=== PATIENT | female | born 1960 | race Caucasian/White ===

== ENCOUNTER 2025-03-12 03:33 | Inpatient (IN) | payer MEDICARE, OTHER ==
[~2025-03-12] VITALS: Ht 160 cm; Wt 83.5 kg
[2025-03-12] MEDS ORDERED: PRAV10TA43 PO (03:51)
[2025-03-12] MEDS ORDERED: HYOS0.1297 PO (03:51)
[2025-03-12 04:49] LABS: BASO # 0.0 10^3/uL (0.0-0.2); BASO % 0.3 % (0.0-1.0); EOS # 0.0 10^3/uL (0.0-0.5); EOS % 0.2 % (0.0-3.0); LYMPH # 1.0 10^3/uL (1.5-5.0); LYMPH % 7.7 % (24.0-44.0); MONO # 0.6 10^3/uL (0.0-0.8); MONO % 4.7 % (2.0-8.0); NEUTROPHILS # 11.2 10^3/uL (1.5-8.5); NEUTROPHILS % 86.9 % (36.0-66.0); PLATELET COUNT, AUTOMATED 359 10^3/uL (150-450)
[2025-03-12 05:03] LABS: ALT/SGPT 21.0 U/L (7.0-40); AST/SGOT 23.0 U/L (<34); CALCIUM LEVEL 10.3 MG/DL (8.3-10.6); CARBON DIOXIDE LEVEL 22.0 MMOL/L (20-31); CHLORIDE LEVEL 105.0 MMOL/L (98-107); CREATININE FOR GFR 0.92 MG/DL (0.55-1.30); GLOMERULAR FILTRATION RATE 69.1 (>45); POTASSIUM SERUM 3.7 MMOL/L (3.5-5.1); SODIUM LEVEL 142.0 MMOL/L (136-145)
[2025-03-12] MEDS: ONDANSETRON 4MG 2ML VIAL IV ONE (05:33)
[2025-03-12] MEDS: FAMOTIDINE 20 MG/2 ML VIAL IVP ONE (05:33)
[2025-03-12] MEDS: LR 1,000 ML IV ONE ×2 (05:33→06:46)
[2025-03-12] MEDS: MORPHINE 4 MG/ML 1 ML VIAL IV ONE (06:10)
[2025-03-12] MEDS: GASTROGRAFIN SOLUTION 30ML PO SCH (06:46)
[2025-03-12] MEDS ORDERED: ISOVUE-370 76% 100 ML VIAL As Ordered ONE (08:01)
[2025-03-12] MEDS ORDERED: LEVS0.123 PO (09:24)
[2025-03-12] MEDS ORDERED: PRAV40TA85 PO (09:24)
[2025-03-12] MEDS ORDERED: HOME MED LIST COMPLETE! XX SCH (09:25)
[2025-03-12 10:08] LABS: KETONE, URINE AUTO RFX NEGATIVE (NEGATIVE); LEUKOCYTE ESTERASE UR AUTO RFX NEGATIVE (NEGATIVE); NITRITE, URINE AUTO RFX NEGATIVE (NEGATIVE); RBC, URINE AUTO RFX 0 /HPF (0-3); SQUAM EPITHELIAL CELL UR AURFX 2 /HPF (0-6); WBC, URINE AUTO RFX 0 /HPF (0-3)
[2025-03-12] MEDS: NS (Normal Saline) 0.9% 1,000 ML IV ONE (11:04)
[2025-03-12] MEDS: SUCRALFATE 1 GM TAB PO SCH (12:00)
[2025-03-12] MEDS ORDERED: MORPHINE 2 MG/ML 1 ML VIAL IV PRN (13:00)
[2025-03-12] MEDS: PANTOPRAZOLE 40MG VIAL IV ONE (14:05)
[2025-03-12] MEDS: NS (Normal Saline) 0.9% 1,000 ML IV SCH (14:06)
[2025-03-12] MEDS: ONDANSETRON 4MG 2ML VIAL IV PRN (18:41)
[2025-03-12 20:00] VITALS: BP 144/82; TEMP 97.2; O2SAT 98
[2025-03-12] MEDS: PRAVASTATIN 20 MG TAB PO SCH (20:22)
[2025-03-12] MEDS: PANTOPRAZOLE 40MG VIAL IV SCH (20:22)
[2025-03-12] MEDS: ENOXAPARIN 40 MG/0.4 ML SYRINGE (J1650 PER 10MG) SC SCH (20:23)
[2025-03-13 04:00] VITALS: BP 139/69; TEMP 97.3; O2SAT 95
[2025-03-13 06:57] LABS: PLATELET COUNT, AUTOMATED 246 10^3/uL (150-450)
[2025-03-13 07:20] LABS: CALCIUM LEVEL 8.5 MG/DL (8.3-10.6); CARBON DIOXIDE LEVEL 25.0 MMOL/L (20-31); CHLORIDE LEVEL 113.0 MMOL/L (98-107); CREATININE FOR GFR 0.91 MG/DL (0.55-1.30); GLOMERULAR FILTRATION RATE 70.0 (>45); POTASSIUM SERUM 4.0 MMOL/L (3.5-5.1); SODIUM LEVEL 146.0 MMOL/L (136-145)
[2025-03-13 10:05] LABS: ESTIMATED AVERAGE GLUCOSE 117.0 MG/DL (60-110)
[2025-03-13 14:00] VITALS: BP 137/70; TEMP 96.8
[2025-03-13] MEDS: ACETAMINOPHEN 325 MG TAB PO PRN (20:12)
[2025-03-13 20:29] VITALS: BP 139/68; TEMP 97; O2SAT 99
[2025-03-14] MEDS: NS 0.45% 1,000 ML IV ONE ×2 (06:16→12:01)
[2025-03-14 06:19] VITALS: BP 140/88; TEMP 97.2; O2SAT 94
[2025-03-14] MEDS ORDERED: SUCR1TA PO (06:51)
[2025-03-14] MEDS ORDERED: PROTPAK PO (06:51)
[2025-03-14] MEDS ORDERED: PERC5TAB12 PO (06:55)
[2025-03-14 07:26] LABS: C REACTIVE PROTEIN QUANTITATIV 2.77 MG/DL (<1.0)
[2025-03-14] MEDS ORDERED: PERCOCET 5MG/325MG TAB PO PRN ×2 (07:35)
[2025-03-14 07:46] LABS: ALT/SGPT 17 U/L (7.0-40); AST/SGOT 19 U/L (<34); CALCIUM LEVEL 8.8 MG/DL (8.3-10.6); CARBON DIOXIDE LEVEL 24 MMOL/L (20-31); CHLORIDE LEVEL 110 MMOL/L (98-107); CHOLESTEROL LEVEL 167 MG/DL (<200); CHOLESTEROL RISK RATIO 3.91 (<5); CREATININE FOR GFR 0.82 MG/DL (0.55-1.30); GLOMERULAR FILTRATION RATE 79.3 (>45); LDL CHOLESTEROL 85.1 MG/DL (<100); NON-HDL-C 124.3 MG/DL; POTASSIUM SERUM 4.1 MMOL/L (3.5-5.1); SODIUM LEVEL 147 MMOL/L (136-145); TRIGLYCERIDES LEVEL 196 MG/DL (<150)
[2025-03-14] MEDS ORDERED: UCER9TAB PO (07:54)
[2025-03-14] MEDS ORDERED: PENT500C PO (07:58)
[2025-03-14] MEDS: NS 0.45% 1,000 ML IV SCH (08:37)
[2025-03-14 13:02] LABS: CALCIUM LEVEL 9.1 MG/DL (8.3-10.6); CARBON DIOXIDE LEVEL 25.0 MMOL/L (20-31); CHLORIDE LEVEL 109.0 MMOL/L (98-107); CREATININE FOR GFR 0.84 MG/DL (0.55-1.30); GLOMERULAR FILTRATION RATE 77.1 (>45); POTASSIUM SERUM 4.0 MMOL/L (3.5-5.1); SODIUM LEVEL 148.0 MMOL/L (136-145)
[2025-03-14] MEDS ORDERED: CIPR-249 PO (13:03)
[2025-03-14] MEDS ORDERED: METR-265 PO (13:03)
[2025-03-14] MEDS ORDERED: PRED10TA2 PO (13:06)
[2025-03-14] MEDS: MESALAMINE 250 MG CR CAP PO SCH (13:38)
[2025-03-14] MEDS: BUDESONIDE EC 3 MG CAP PO SCH (13:38)
== END 2025-03-14 14:05 | disposition home or self-care (01) | DRG 392 ==
LOC: M ED 06:35 → M ED INP 13:00 → M MS5PR 14:16 → OBSVTOIN 03-13 08:39
PROVIDERS: ADMIT Internal Medicine; ATTEND Internal Medicine
DX: R13.10 Dysphagia, unspecified (principal); E87.20 Acidosis, unspecified; K50.90 Crohn's disease, unspecified, without complications; E78.5 Hyperlipidemia, unspecified; R91.1 Solitary pulmonary nodule; Z90.79 Acquired absence of other genital organ(s); Z79.899 Other long term (current) drug therapy